=== PATIENT | female | born 2000 ===

== ENCOUNTER 2020-09-23 10:53 | Emergency (ER) | payer OTHER ==
[~2020-09-23] VITALS: Ht 170.2 cm; Wt 72.6 kg
[2020-09-23] MEDS ORDERED: ALBU8HFA2 INH (12:24)
[2020-09-23] MEDS ORDERED: METPRE4DP PO (13:29)
[2020-09-23] MEDS ORDERED: Robaxin-750750 MG PO (13:29)
== END 2020-09-23 13:49 | disposition home or self-care (01) ==
LOC: ER 10:53
DX: M54.17 Radiculopathy, lumbosacral region (principal); Z79.899 Other long term (current) drug therapy
CPT/HCPCS: 72100; 99283-25

== ENCOUNTER 2022-04-08 12:57 | Emergency (ER) | payer OTHER ==
[~2022-04-08] VITALS: Ht 167.6 cm; Wt 70.3 kg
[~2022-04-08 12:57] MED LIST: ALBU8HFA2 INH; CYCL10 PO; KETO10 PO; LORA10ER PO; METPRE4DP PO; Robaxin-750750 MG PO; ZYRTEC10 M2 PO
== END 2022-04-08 14:45 | disposition home or self-care (01) ==
LOC: ER 12:57
DX: B08.4 Enteroviral vesicular stomatitis with exanthem (principal); J45.909 Unspecified asthma, uncomplicated; Z79.899 Other long term (current) drug therapy
CPT/HCPCS: 99283